=== PATIENT | male | born 1980 | race Caucasian/White ===

== ENCOUNTER 2016-05-26 05:57 | Emergency (ER) | payer BC ==
[~2016-05-26] VITALS: Ht 172.7 cm; Wt 94.0 kg
[~2016-05-26 05:57] MED LIST: ALBU8.5H3 INH; ATEN50TA PO; AZIT250T94 PO; IBUP-1542 PO; PRED50TA PO
[2016-05-26 06:11] VITALS: Ht 172.7 cm; Wt 94.0 kg
[2016-05-26] MEDS ORDERED: DEXAMETHASONE 10 MG/ML 1 ML INJ IM STA (06:57)
[2016-05-26] MEDS ORDERED: ALBUTEROL 0.5% (NEB) 2.5 MG/0.5 ML AMP NEB STA (06:57)
[2016-05-26] MEDS ORDERED: IPRATROPIUM (NEB) 0.5 MG/2.5 ML AMP NEB STA (06:57)
--- NOTE | 2016-05-26 07:25 | RADRPT ---
PROCEDURE: XR Chest. CLINICAL INDICATION: Shortness of breath TECHNIQUE: 2 views of the chest COMPARISON: Chest radiograph July 30, 2015 FINDINGS: The lungs are clear. The heart size is normal. There is no pleural effusion. There is no pneumothorax. There is no acute osseous abnormality. IMPRESSION: 1. No acute cardiopulmonary findings. RPTAT: UU .Jeancarlos Deluca MD, MD Date Time Electronically viewed and signed by .Jeancarlos Deluca MD, on 05/26/2016 07:24 .K/
--- NOTE | 2016-05-26 07:38 | RADRPT ---
PROCEDURE: Soft tissue neck. CLINICAL INDICATION: Swelling, asthma. TECHNIQUE: Single lateral view of the soft tissue neck was obtained. COMPARISON: None. FINDINGS: The airways are patent. The epiglottis is not enlarged. Prevertebral soft tissues are within césar l limits. There is no radiopaque foreign body or abnormal calcification identified. Osseous struct ures are unremarkable. IMPRESSION: Unremarkable soft tissue neck. .Brown Miranda MD, MD Date Time Electronically viewed and signed by .Brown Miranda MD, on 05/26/2016 07:38 .T/
[2016-05-26] MEDS ORDERED: ALBU2.5V3 NEB (08:08)
[2016-05-26] MEDS ORDERED: ALBU18HF INHALATION (08:08)
[2016-05-26] MEDS ORDERED: PRED20TA PO (08:08)
--- NOTE | 2016-05-26 08:16 | ERD ---
ER Documentation Chief Complaint Date/Time DATE: 05/26/16 TIME: 08:12 Chief Complaint cough x 2 weeks HPI Hypertension presents the ED complaining of a dry cough that started 2 weeks ago. States that it was triggered by dust while he was moving to a different home. States that he has been taking Benadryl without relief of his symptoms. States that the breathing got worse today. Denies any chest pain, abdominal pain, nausea, vomiting, neck pain, dyspnea on exertion, orthopnea. ROS All systems reviewed and are negative except as per history of present illness. Medications Home Meds Active Scripts Albuterol Sulfate* (Albuterol Sulfate* Neb) 0.083%-3 Ml Neb, 2.5 MG NEB Q4 Y for SHORTNESS OF BREATH, #30 EA Prov:MILKA FARNSWORTH PA-C 05/26/16 Albuterol Sulfate* (Ventolin HFA*) 18 Gm Hfa.aer.ad, 2 PUFF INHALATION Q4H, #1 INHALER Prov:MILKA FARNSWORTH PA-C 05/26/16 Prednisone* (Prednisone*) 20 Mg Tab, 40 MG PO DAILY for 4 Days, TAB Prov:MILKA FARNSWORTH PA-C 05/26/16 Azithromycin* (Zithromax*) 250 Mg Tablet, 250 MG PO DAILY for 5 Days, TAB zpak #1 as directed Prov:AURORA PALACIOS PA-C 07/30/15 Prednisone* (Prednisone*) 50 Mg Tablet, 50 MG PO DAILY, #5 TAB Prov:AURORA PALACIOS PA-C 07/30/15 Albuterol Sulfate* (Proair HFA*) 8.5 Gm Hfa.aer.ad, 2 PUFF INH Q4, #1 INHALER Prov:AURORA PALACIOS PA-C 07/30/15 Ibuprofen* (Motrin*) 600 Mg Tab, 600 MG PO Q6H Y for PAIN AND OR ELEVATED TEMP, #20 Prov:NICOL SANTIAGO 02/04/15 Reported Medications Atenolol* (Atenolol*) 50 Mg Tablet, 50 MG PO DAILY 01/09/13 Allergies Allergies: Coded Allergies: No Known Allergy (Unverified , 01/09/13) PMhx/Soc History of Surgery: No Anesthesia Reaction: No Hx Neurological Disorder: No Hx Respiratory Disorders: No Hx Cardiac Disorders: Yes (HTN) Hx Psychiatric Problems: No Hx Miscellaneous Medical Probl: No Hx Alcohol Use: No Hx Substance Use: No Hx Tobacco Use: No Physical Exam Vitals Vital Signs Date Time Temp Pulse Resp B/P Pulse Ox O2 Delivery O2 Flow Rate FiO2 05/26/16 07:15 78 19 96 21 05/26/16 06:11 98.3 81 20 137/83 96 Physical Exam Const: Hoh-[id number]-[id number], well-nourished. In no acute distress. Head: Atraumatic, normocephalic Eyes: Normal Conjunctiva without injection. No purulent discharge. PERRL. EOMI ENT: Normal external ear. Ear canal without erythema. Tympanic membrane pearly martinez without effusion or bulging. Nasal canal clear with normal turbinates. Moist oropharynx without tonsillar exudates. Non-erythematous pharynx. Uvula midline. No drooling. No trismus. Neck: Full range of motion. No meningismus. No cervical lymphadenopathy. Resp: Expiratory wheezing bilaterally noted. No rhonchi, rales, or crackles. No accessory muscle use. No retractions. Cardio: Regular rate and rhythm. No murmurs, rubs or gallops. Abd: Soft, non tender, non distended. Normal bowel sounds. No palpable masses. No rebound tenderness. No guarding. Skin: No petechiae or rashes Back: No midline tenderness. No CVA tenderness. Ext: No cyanosis, or edema. Neur: Awake and alert. Psych: Normal Mood and Affect Results 24 hrs Current Medications Medications (Trade) Dose Ordered Sig/Debbie Route PRN Reason Start Time Stop Time Status Last Admin Dose Admin Albuterol (Proventil 0.5% (Neb)) 10 mg ONCE STAT NEB 05/26/16 06:57 05/26/16 07:01 DC 05/26/16 07:12 Ipratropium Dexter (Atrovent 0.02% (Neb)) 1 mg ONCE STAT NEB 05/26/16 06:57 05/26/16 07:01 DC 05/26/16 07:12 Dexamethasone (Decadron) 10 mg ONCE STAT IM 05/26/16 06:57 05/26/16 07:01 DC 05/26/16 07:11 Procedures/MDM This is a 35-year-old male with a past medical history of hypertension presents the ED complaining of cough for the last 2 weeks as well as wheezing earlier today. Patient is afebrile and nontoxic-appearing. Patient has normal vital signs. Patient was noted to have some wheezing in the chest as well as stridor like symptoms in the neck region. A chest x-ray, neck x-ray was ordered to further evaluate patient. A breathing treatment consisting of 10 mg albuterol, 1 mg Atrovent, Decadron was ordered to further treat patient with improvement. PROCEDURE: XR Chest. CLINICAL INDICATION: Shortness of breath TECHNIQUE: 2 views of the chest COMPARISON: Chest radiograph July 30, 2015 FINDINGS: The lungs are clear. The heart size is normal. There is no pleural effusion. There is no pneumothorax. There is no acute osseous abnormality. IMPRESSION: 1. No acute cardiopulmonary findings. PROCEDURE: Soft tissue neck. CLINICAL INDICATION: Swelling, asthma. TECHNIQUE: Single lateral view of the soft tissue neck was obtained. COMPARISON: None. FINDINGS: The airways are patent. The epiglottis is not enlarged. Prevertebral soft tissues are within normal limits. There is no radiopaque foreign body or abnormal calcification identified. Osseous structures are unremarkable. IMPRESSION: Unremarkable soft tissue neck. This patient presents to the ED with symptoms consistent with bronchitis with wheezing exacerbated by dust. Patient is afebrile and has normal vital signs. Patient's physical exam include lungs which were clear to auscultation and a normal pulse oximetry. There is a low suspicion for pneumonia, pneumothorax, pulmonary embolism, epiglottitis, otitis media, otitis externa, viral/strep pharyngitis, sinusitis, peritonsillar abscess, mastoiditis, retropharyngeal abscess, meningitis, sepsis, acute abdomen or other emergent conditions. Discharge medications: Albuterol, Ventolin, Prednisone Patient was instructed to return to the ED for any new or worsening symptoms. They should otherwise follow up with the primary care provider within 1-2 days. The patient's questions were answered at the time of discharge. Patient understood and agreed with discharge management. Departure Diagnosis: Primary Impression: Wheezing without diagnosis of asthma Condition: Stable Patient Instructions: Bronchitis With Wheezing (Adult) Referrals: COMM[facility]ITY CLINICS YOU HAVE RECEIVED A MEDICAL SCREENING EXAM AND THE RESULTS INDICATE THAT YOU DO NOT HAVE A CONDITION THAT REQUIRES URGENT TREATMENT IN THE EMERGENCY DEPARTMENT. FURTHER EVALUATION AND TREATMENT OF YOUR CONDITION CAN WAIT UNTIL YOU ARE SEEN IN YOUR DOCTORS OFFICE WITHIN THE NEXT 1-2 DAYS. IT IS YOUR RESPONSIBILITY TO MAKE AN APPOINTMENT FOR FOLOW-UP CARE. IF YOU HAVE A PRIMARY DOCTOR --you should call your primary doctor and schedule an appointment IF YOU DO NOT HAVE A PRIMARY DOCTOR YOU CAN CALL OUR PHYSICIAN REFERRAL HOTLINE AT IF YOU CAN NOT AFFORD TO SEE A PHYSICIAN YOU CAN CHOSE FROM THE FOLLOWING [facility] [address] [facility] [address] [facility] [address] [facility] [address] [facility] [address] [facility]. [facility] [address] [facility]. [facility] YOU HAVE RECEIVED A MEDICAL SCREENING EXAM AND THE RESULTS INDICATE THAT YOU DO NOT HAVE A CONDITION THAT REQUIRES URGENT TREATMENT IN THE EMERGENCY DEPARTMENT. FURTHER EVALUATION AND TREATMENT OF YOUR CONDITION CAN WAIT UNTIL YOU ARE SEEN IN YOUR DOCTORS OFFICE WITHIN THE NEXT 1-2 DAYS. IT IS YOUR RESPONSIBILITY TO MAKE AN APPOINTMENT FOR FOLOW-UP CARE. IF YOU HAVE A PRIMARY DOCTOR --you should call your primary doctor and schedule and appointment IF YOU DO NOT HAVE A PRIMARY DOCTOR YOU CAN CALL OUR PHYSICIAN REFERRAL HOTLINE AT . IF YOU CAN NOT AFFORD TO SEE A PHYSICIAN YOU CAN CHOSE FROM THE FOLLOWING [facility] INSTITUTIONS: [facility] [address] [place] [address] [facility] [address] [place] [address] [facility] [address] [place] [address] [facility] URGENT CARE/SPECIALTIES Additional Instructions: FOLLOW UP WITH YOUR PRIMARY CARE PHYSICIAN TOMORROW.Return to this facility if you are not improving as expected. MILKA FARNSWORTH PA-C May 26, 2016 08:16
== END 2016-05-26 08:15 | disposition home or self-care (01) ==
LOC: FTE 05:57
DX: R06.2 Wheezing (principal); I10 Essential (primary) hypertension
CPT/HCPCS: 70360; 71010; 94664; J1100; 96372

== ENCOUNTER 2017-07-05 18:18 | Emergency (ER) | END 2017-07-05 21:54 | disposition home or self-care (01) ==

== ENCOUNTER 2017-08-08 03:31 | Emergency (ER) | END 2017-08-08 05:05 | disposition home or self-care (01) ==

== ENCOUNTER 2017-11-15 19:57 | Emergency (ER) | END 2017-11-15 22:38 | disposition home or self-care (01) ==

== ENCOUNTER 2018-08-09 07:34 | Emergency (ER) | payer BC ==
[~2018-08-09] VITALS: Ht 170.2 cm; Wt 93.1 kg
[~2018-08-09 07:34] MED LIST changes: +ACET500C5 PO; +ALBU18HF INHALATION; +ALBU2.5V3 NEB; -ALBU8.5H3 INH; +ALBU8.5H8 INH; +AZIT250T PO; -AZIT250T94 PO; +BENZ-6 PO; +CETI10CA PO; +HYDR-4011 PO; +MECL12.574 PO; +NAPR-688 PO; +ONDA4TAB14 PO; +POLY10DR19 LEFT EYE; +PRED20TA PO
[2018-08-09 07:37] VITALS: Ht 170.2 cm; Wt 93.1 kg
[2018-08-09] MEDS ORDERED: IPRATROPIUM (NEB) 0.5 MG/2.5 ML AMP NEB STA (07:52)
[2018-08-09] MEDS ORDERED: predniSONE 20 MG TAB PO STA (07:52)
[2018-08-09] MEDS ORDERED: ALBUTEROL 0.083% (NEB) 2.5 MG/3 ML AMP NEB STA (07:52)
--- NOTE | 2018-08-09 08:06 | ERD ---
ER Documentation Chief Complaint Chief Complaint pt has cough and wheezing x 1 month HPI Patient is a 37-year-old male with past medical history of hypertension, asthma, presents the ER for concerns of a cough and wheezing for the last month. Patient states he typically has wheezing after exercising however over the last month he said numerous episodes. Patient states he does use an albuterol inhaler. Patient is concerned he may have bronchitis. Patient reports a productive cough. Patient has no fevers or chills. Patient has no chest pain or shortness of breath. Patient has no nausea or vomiting. No recent travel. No sick contacts. ROS All systems reviewed and are negative except as per history of present illness. Medications Home Meds Active Scripts Meclizine Hcl* (Antivert*) 12.5 Mg Tab, 25 MG PO Q6H PRN for DIZZINESS, #20 TAB Prov:JOSUÉ MARTINEZ NP 06/04/18 Acetaminophen* (Tylophen*) 500 Mg Capsule, 1 CAP PO Q6H PRN for PAIN AND OR ELEVATED TEMP, #20 CAP Prov:JOSUÉ MARTINEZ NP 08/08/17 Benzonatate* (Tessalon Perle*) 100 Mg Capsule, 100 MG PO Q8H PRN for COUGH, #20 CAP Prov:JOSUÉ MARTINEZ NP 08/08/17 Cetirizine Hcl* (Zyrtec*) 10 Mg Capsule, 10 MG PO DAILY, #30 TAB.CHEW Prov:JOSUÉ MARTINEZ NP 08/08/17 Polymyxin B Sulfate-TMP* (Polymyxin B-TMP Eye Drops*) 10 Ml Drops, 1 DROP LEFT EYE QID for 7 Days, EA Prov:JOSUÉ MARTINEZ NP 08/08/17 Azithromycin* (Zithromax*) 250 Mg Tablet, 250 MG PO .JavonPAROB DIRECTED, #6 TAB TAKE 500 MG (2 TABS) THE FIRST DAY THEN 250 MG (1 TAB) DAYS 2-5 Prov:JOSUÉ MARTINEZ NP 08/08/17 Hydrocodone/Acetaminophen ([place] 5-325 Tablet) 1 Each Tablet, 1 EACH PO Q6 for SEVERE PAIN LEVEL 7-10, #10 TAB Prov:CARROL KAN DO 3/16/18 Naproxen* (Naproxen*) 500 Mg Tablet, 500 MG PO BID PRN for PAIN, #20 TAB Prov:CARROL KAN DO 07/05/17 Ondansetron (Ondansetron Odt) 4 Mg Tab.rapdis, 4 MG PO Q6H PRN for NAUSEA AND/OR VOMITING, #10 TAB Prov:CARROL KAN DO 07/05/17 Albuterol Sulfate* (Albuterol Sulfate* Neb) 0.083%-3 Ml Neb, 2.5 MG NEB Q4 PRN for SHORTNESS OF BREATH, #30 EA Prov:MILKA FARNSWORTH PA-C 05/26/16 Albuterol Sulfate* (Ventolin HFA*) 18 Gm Hfa.aer.ad, 2 PUFF INHALATION Q4H, #1 INHALER Prov:MILKA FARNSWORTH PA-C 05/26/16 Prednisone* (Prednisone*) 20 Mg Tab, 40 MG PO DAILY for 4 Days, TAB Prov:IMLKA FARNSWORTH PA-C 05/26/16 Azithromycin* (Zithromax*) 250 Mg Tablet, 250 MG PO DAILY for 5 Days, TAB zpak #1 as directed Prov:AURORA PALACIOS PA-C 07/30/15 Prednisone* (Prednisone*) 50 Mg Tablet, 50 MG PO DAILY, #5 TAB Prov:AURORA PALACIOS PA-C 07/30/15 Albuterol Sulfate* (Proair HFA*) 8.5 Gm Hfa.aer.ad, 2 PUFF INH Q4, #1 INHALER Prov:AURORA PALACIOS PA-C 07/30/15 Ibuprofen* (Motrin*) 600 Mg Tab, 600 MG PO Q6H PRN for PAIN AND OR ELEVATED TEMP, #20 Prov:NICOL SANTIAGO 02/04/15 Reported Medications Atenolol* (Atenolol*) 50 Mg Tablet, 50 MG PO DAILY 01/09/13 Allergies Allergies: Coded Allergies: No Known Allergy (Unverified , 06/04/18) PMhx/Soc History of Surgery: Yes (LT SHOULDER ) Anesthesia Reaction: No Hx Neurological Disorder: No Hx Respiratory Disorders: No Hx Cardiac Disorders: Yes (HTN) Hx Psychiatric Problems: No Hx Miscellaneous Medical Probl: Yes (htn, hld, low vitd) Hx Alcohol Use: No Hx Substance Use: No Hx Tobacco Use: No FmHx Family History: No diabetes Physical Exam Vitals Vital Signs Date Temp Pulse Resp B/P (MAP) Pulse Ox O2 O2 Flow FiO2 Time Delivery Rate 08/09/18 66 18 98 21 08:22 08/09/18 98.1 60 18 195/85 97 07:37 (121) Physical Exam GENERAL: Well-developed, well-nourished male. Appears in no acute distress. Speaking in full sentences HEAD: Normocephalic, atraumatic. EYES: Pupils are equally reactive bilaterally. EOMs grossly intact. No conjunctival erythema. ENT: Moist mucous membranes. No uvula deviation. No kissing tonsils. NECK: Supple. No meningismus. Normal range of motion of the neck. LUNG: Bilateral expiratory wheezing noted. No abdominal retractions, no nasal flaring, no tripoding. HEART: Regular rate and rhythm. No murmurs, rubs or gallops. EXTREMITIES: Equal pulses bilaterally. No peripheral clubbing, cyanosis or edema. No unilateral leg swelling. NEUROLOGIC: Alert and oriented. Moving all four extremities without any difficulty. Normal speech. Steady gait. SKIN: Normal color. Warm and dry. No rashes or lesions. Results 24 hrs Current Medications Medications Dose Sig/Debbie Start Time Status Last (Trade) Ordered Route PRN Stop Time Admin Dose Reason Admin Albuterol 5 mg ONCE STAT 08/09/18 DC 08/09/18 (Proventil NEB 07:52 08:19 0.083% (Neb)) 08/09/18 07:53 Ipratropium 1 mg ONCE STAT 08/09/18 DC 08/09/18 [place] NEB 07:52 08:20 (Atrovent 08/09/18 07:53 0.02% (Neb)) Prednisone 60 mg ONCE STAT 08/09/18 DC 08/09/18 (Prednisone) PO 07:52 08:00 08/09/18 07:53 Procedures/MDM ED COURSE: The patient was stable throughout ED course. I kept the patient and/or family informed of laboratory and diagnostic imaging results throughout the ED course. DIAGNOSTIC IMAGING: Read by radiologist. Patient: SIA SKY : 1980 Age: 37 Sex: M MR #: [id number] DOS: 08/09/18 0752 Ordering MD: MIGUEL ANGULO PA-C Location: [facility] Room/Bed: PROCEDURE: XR Chest. CLINICAL INDICATION: Cough TECHNIQUE: Single frontal view of the chest was obtained COMPARISON: CR CHEST 05/26/2016 FINDINGS: Limited study. The right costophrenic angle was not completely included. The heart and mediastinum are within normal limits. The lungs are clear. There is no pleural effusion or pneumothorax. RPTAT: AA IMPRESSION: No acute disease. .Eligio Larkin MD, MD Date Time Electronically viewed and signed by .Eligio Larkin MD, on 08/09/2018 08:19 .S/ CC: MIGUEL ANGULO PA-C [phone] MEDICAL DECISION MAKING: This is a 37-year-old male with history of hypertension and asthma presents the ER for concerns of productive cough and wheezing for the last month. Patient was afebrile. Patient was not hypoxic. Patient denied recent travel. Cardiac exam was normal. Lung exam did reveal bilateral expiratory wheezing. Patient had no signs of acute respiratory distress. Patient was given a breathing treatment of albuterol and ipratropium. Patient also given prednisone. On reexamination, patient had improvement in symptoms. Chest x-ray is unremarkable. Patient will be discharged home with prescription for prednisone, albuterol, Tessalon Perles, azithromycin for concerns of bronchitis. Low suspicion for for acute coronary syndrome, pneumothorax, pneumonia, TB, CHF, asthma exacerbation, respiratory distress, respiratory compromise, pertussis, GERD, allergic rhinitis. Of note, patient blood pressure was elevated. Patient did not take his medications morning. Patient advised take medication upon returning home. Patient had no signs of acute end organ failure. DISCHARGE: At this time, patient is stable for discharge and outpatient management. I have instructed the patient to follow-up with his/her primary care physician in 1-2 days. If symptoms persist, patient may need to see a specialist for further examinations and testing. I have instructed the patient to promptly return to the ER at any time for any new or worsening symptoms including increased increased pain, fever, nausea, vomiting, numbness, shortness of breath, weakness, ongoing wheezing, retractions or LOC. The patient and/or family expressed understanding of and agreement with this plan. All questions were answered. Home care instructions were provided. Patient's blood pressure was elevated (>120/80) but appears stable without evidence of hypertensive emergency, hypertensive urgency or end-organ failure. I had discussion with the patient about the risks of hypertension. I have advised the patient to follow up with his/her primary care physician for outpatient monitoring and treatment for hypertension in 2-3 days. I have instructed the patient to return to the ER for any new or worsening symptoms including chest pain, shortness of breath, headache, blurred vision, confusion, nausea, vomiting or LOC. Disclaimer: Inadvertent spelling and grammatical errors are likely due to EHR/dictation software use and do not reflect on the overall quality of patient care. Also, please note that the electronic time recorded on this note does not necessarily reflect the actual time of the patient encounter. Departure Diagnosis: Primary Impression: Wheezy bronchitis Condition: Fair Patient Instructions: Bronchitis With Wheezing (Adult) Referrals: [facility] YOU HAVE RECEIVED A MEDICAL SCREENING EXAM AND THE RESULTS INDICATE THAT YOU DO NOT HAVE A CONDITION THAT REQUIRES URGENT TREATMENT IN THE EMERGENCY DEPARTMENT. FURTHER EVALUATION AND TREATMENT OF YOUR CONDITION CAN WAIT UNTIL YOU ARE SEEN IN YOUR DOCTORS OFFICE WITHIN THE NEXT 1-2 DAYS. IT IS YOUR RESPONSIBILITY TO MAKE AN APPOINTMENT FOR FOLOW-UP CARE. IF YOU HAVE A PRIMARY DOCTOR --you should call your primary doctor and schedule an appointment IF YOU DO NOT HAVE A PRIMARY DOCTOR YOU CAN CALL OUR PHYSICIAN REFERRAL HOTLINE AT IF YOU CAN NOT AFFORD TO SEE A PHYSICIAN YOU CAN CHOSE FROM THE FOLLOWING [facility] [address] [facility] [address] [facility] [address] [facility] [address] [facility] [facility] [address] [facility]. [facility]. [address] [facility]. [facility] YOU HAVE RECEIVED A MEDICAL SCREENING EXAM AND THE RESULTS INDICATE THAT YOU DO NOT HAVE A CONDITION THAT REQUIRES URGENT TREATMENT IN THE EMERGENCY DEPARTMENT. FURTHER EVALUATION AND TREATMENT OF YOUR CONDITION CAN WAIT UNTIL YOU ARE SEEN IN YOUR DOCTORS OFFICE WITHIN THE NEXT 1-2 DAYS. IT IS YOUR RESPONSIBILITY TO MAKE AN APPOINTMENT FOR FOLOW-UP CARE. IF YOU HAVE A PRIMARY DOCTOR --you should call your primary doctor and schedule and appointment IF YOU DO NOT HAVE A PRIMARY DOCTOR YOU CAN CALL OUR PHYSICIAN REFERRAL HOTLINE AT . IF YOU CAN NOT AFFORD TO SEE A PHYSICIAN YOU CAN CHOSE FROM THE FOLLOWING [facility]: [facility] [address] [place] [address] [facility] [address] [place], [place] [id number] [place] [address] [address] [place] [address] Additional Instructions: Call your primary care doctor TOMORROW for an appointment during the next 1-2 d ays.See the doctor sooner or return here if your condition worsens before your appointment time. MIGUEL ANGULO PA-C Aug 09, 2018 08:06
[2018-08-09] MEDS ORDERED: ALBU8.5H8 INH (08:46)
[2018-08-09] MEDS ORDERED: PRED20TA PO (08:46)
[2018-08-09] MEDS ORDERED: AZIT250T PO (08:46)
[2018-08-09] MEDS ORDERED: BENZ-6 PO (08:47)
[2018-08-09 09:02] VITALS: BP 154/86; PULSE 53; RESP 20
== END 2018-08-09 09:03 | disposition home or self-care (01) ==
LOC: FTE 07:34
DX: J20.9 Acute bronchitis, unspecified (principal); I10 Essential (primary) hypertension; J45.901 Unspecified asthma with (acute) exacerbation
CPT/HCPCS: 71045; 94664; 99284; J7512

== ENCOUNTER 2018-08-13 14:57 | Emergency (ER) | payer BC ==
[~2018-08-13] VITALS: Ht 172.7 cm; Wt 94.4 kg
[2018-08-13 15:00] VITALS: BP 160/73; PULSE 81; RESP 20; Ht 172.7 cm; Wt 94.4 kg
--- NOTE | 2018-08-13 15:13 | ERD ---
ER Documentation Chief Complaint Chief Complaint abscess on lower back that was popped by ; now its swollen HPI 37-year-old male, with history of hypertension, presents to the emergency department, complaining of a painful area of erythema and induration on the left lower back. According to the patient, he had an a small lesion that was popped by his and after that it became worse. The patient denies fever, no chills, no chest pain, no headache. ROS All systems reviewed and are negative except as per history of present illness. Medications Home Meds Active Scripts Hydroxyzine Hcl* (Hydroxyzine Hcl*) 25 Mg Tablet, 25 MG PO TID PRN for ANXIETY, #30 TAB Prov:JING MAGANA MD 08/13/18 Acetaminophen* (Tylenol*) 325 Mg Tablet, 2 TAB PO Q6 PRN for PAIN AND OR ELEVATED TEMP, #20 TAB Prov:JING MAGANA MD 08/13/18 Cephalexin* (Keflex*) 500 Mg Capsule, 500 MG PO BID for 7 Days, CAP Prov:JING MAGANA MD 08/13/18 Sulfamethoxazole/Trimethoprim* (Bactrim Ds* Tablet) 1 Each Tablet, 1 TAB PO BID, #14 TAB Prov:JING MAGANA MD 08/13/18 Mupirocin* (Bactroban*) 2% -22 Gram Oint...g., 1 APPLIC TOP BID for 7 Days, EA Prov:JING MAGANA MD 08/13/18 Benzonatate* (Tessalon Perle*) 100 Mg Capsule, 100 MG PO Q8H PRN for COUGH, #20 CAP Prov:MIGUEL ANGULO PA-C 08/09/18 Azithromycin* (Zithromax*) 250 Mg Tablet, 250 MG PO .ZPACK DIRECTED, #6 TAB TAKE 500 MG (2 TABS) THE FIRST DAY THEN 250 MG (1 TAB) DAYS 2-5 Prov:MIGUEL ANGULO PA-C 08/09/18 Prednisone* (Prednisone*) 20 Mg Tab, 60 MG PO DAILY for 4 Days, TAB Prov:MIGUEL ANGULO PA-C 08/09/18 Albuterol Sulfate* (Proair HFA*) 8.5 Gm Hfa.aer.ad, 2 PUFF INH Q6, #1 INHALER Prov:MIGUEL ANGULO PA-C 08/09/18 Meclizine Hcl* (Antivert*) 12.5 Mg Tab, 25 MG PO Q6H PRN for DIZZINESS, #20 TAB Prov:JOSUÉ MARTINEZ SMOKE EATER 06/04/18 Acetaminophen* (Tylophen*) 500 Mg Capsule, 1 CAP PO Q6H PRN for PAIN AND OR ELEVATED TEMP, #20 CAP Prov:JOSUÉ MARTINEZ SMOKE EATER 08/08/17 Benzonatate* (Tessalon Perle*) 100 Mg Capsule, 100 MG PO Q8H PRN for COUGH, #20 CAP Prov:JOSUÉ MARTINEZ NP 08/08/17 Cetirizine Hcl* (Zyrtec*) 10 Mg Capsule, 10 MG PO DAILY, #30 TAB.CHEW Prov:JOSUÉ MARTINEZ NP 08/08/17 Polymyxin B Sulfate-TMP* (Polymyxin B-TMP Eye Drops*) 10 Ml Drops, 1 DROP LEFT EYE QID for 7 Days, EA Prov:JOSUÉ MARTINEZ NP 08/08/17 Azithromycin* (Zithromax*) 250 Mg Tablet, 250 MG PO .DANA DIRECTED, #6 TAB TAKE 500 MG (2 TABS) THE FIRST DAY THEN 250 MG (1 TAB) DAYS 2-5 Prov:JOSUÉ MARTINEZ NP 08/08/17 Hydrocodone/Acetaminophen ([place] 5-325 Tablet) 1 Each Tablet, 1 EACH PO Q6 for SEVERE PAIN LEVEL 7-10, #10 TAB Prov:CARROL KAN DO 07/05/17 Naproxen* (Naproxen*) 500 Mg Tablet, 500 MG PO BID PRN for PAIN, #20 TAB Prov:CARROL KAN DO 07/05/17 Ondansetron (Ondansetron Odt) 4 Mg Tab.rapdis, 4 MG PO Q6H PRN for NAUSEA AND/OR VOMITING, #10 TAB Prov:CARROL KAN DO 07/05/17 Albuterol Sulfate* (Albuterol Sulfate* Neb) 0.083%-3 Ml Neb, 2.5 MG NEB Q4 PRN for SHORTNESS OF BREATH, #30 EA Prov:DAJAMILKA Coy PA-C 05/26/16 Albuterol Sulfate* (Ventolin HFA*) 18 Gm Hfa.aer.ad, 2 PUFF INHALATION Q4H, #1 INHALER Prov:DAJAMILKA Coy PA-C 05/26/16 Prednisone* (Prednisone*) 20 Mg Tab, 40 MG PO DAILY for 4 Days, TAB Prov:MILKA FARNSWORTH PA-C 05/26/16 Azithromycin* (Zithromax*) 250 Mg Tablet, 250 MG PO DAILY for 5 Days, TAB zpak #1 as directed Prov:AURORA PALACIOS PA-C 07/30/15 Prednisone* (Prednisone*) 50 Mg Tablet, 50 MG PO DAILY, #5 TAB Prov:AURORA PALACIOS PA-C 07/30/15 Albuterol Sulfate* (Proair HFA*) 8.5 Gm Hfa.aer.ad, 2 PUFF INH Q4, #1 INHALER Prov:AURORA PALACIOS PA-C 07/30/15 Ibuprofen* (Motrin*) 600 Mg Tab, 600 MG PO Q6H PRN for PAIN AND OR ELEVATED TEMP, #20 Prov:NICOL SANTIAGO 02/04/15 Reported Medications Atenolol* (Atenolol*) 50 Mg Tablet, 50 MG PO DAILY 01/09/13 Allergies Allergies: Coded Allergies: No Known Allergy (Unverified , 06/04/18) PMhx/Soc History of Surgery: Yes (LT SHOULDER ) Anesthesia Reaction: No Hx Neurological Disorder: No Hx Respiratory Disorders: No Hx Cardiac Disorders: Yes (HTN) Hx Psychiatric Problems: No Hx Miscellaneous Medical Probl: Yes (htn, hld, low vitd) Hx Alcohol Use: No Hx Substance Use: No Hx Tobacco Use: No FmHx Family History: diabetes, other (Hypertension) Physical Exam Vitals Vital Signs Date Temp Pulse Resp B/P (MAP) Pulse Ox O2 O2 Flow FiO2 Time Delivery Rate 08/13/18 97.5 81 20 160/73 97 15:00 (102) Physical Exam Const: No acute distress Head: Atraumatic Eyes: Normal Conjunctiva ENT: Normal External Ears, Nose and Mouth. Neck: Full range of motion. No meningismus. Resp: Clear to auscultation bilaterally Cardio: Regular rate and rhythm, no murmurs Abd: Soft, non tender, non distended. Normal bowel sounds Skin: 3 x 3 cm well demarcated area of erythema and induration, with a central opening with active mild drainage of purulent material. Otherwise no evidence of abscess formation. Back: No midline or flank tenderness Ext: No cyanosis, or edema Neur: Awake and alert Psych: Normal Mood and Affect Procedures/MDM Vital signs stable, differential diagnosis include but not limited to: DVT, superficial thrombosis, cellulitis, erysipelas, shingles, abscess. Low suspicion for acute systemic infectious process. Physical examination and clinical presentation consistent most likely with cellulitis of the skin of the left lower back without evidence of abscess formation. During the ED course the patient remained stable, no new complaints. Results and clinical impression discussed with the patient who agrees with management. The patient is stable to be treated outpatient and will be discharged home with a Rx for antibiotics, anti-inflammatories and pain medications, some side effects of prescribed medications (headache, rash, nausea, vomiting, diarrhea, drowsiness, habituation, bleeding, hypertension, interactions with other medications) were reviewed. The patient was instructed to follow up with the primary care provider in the next 48h. If symptoms persist, worsen or new symptoms develop, then patient should return to the ED immediately. Instructions explained and given directly by me to the patient and relatives with acknowledgment and demonstrated understanding. Disclaimer: Inadvertent spelling and grammatical errors are likely due to EHR/dictation software use and do not reflect on the overall quality of patient care. Also, please note that the electronic time recorded on this note does not necessarily reflect the actual time of the patient encounter. Departure Diagnosis: Primary Impression: Cellulitis of skin of back Condition: Stable Additional Instructions: Thank you very much for allowing us to participate in your care. Your health and safety is our top priority at [facility]. The evaluation in the emergency department has been done to rule out an acute emergency, therefore, chronic conditions like malignancy or other diseases have not been evaluated; therefore, you need to follow up with a primary care provider in the next 48h. If symptoms persist, worsen or new symptoms develop, then patient should return to the ED immediately. Call your primary care doctor TOMORROW for an appointment during the next 2-4 days and bring all the information provided. Have prescriptions filled and follow precisely the directions on the label. If the symptoms get worse and your provider is unavailable, return to the Emergency Department immediately. JING MAGANA MD Aug 13, 2018 15:13
[2018-08-13] MEDS ORDERED: MUPI22OI2 TOP (15:15)
[2018-08-13] MEDS ORDERED: CEPH-443 PO (15:15)
[2018-08-13] MEDS ORDERED: ACET325T33 PO (15:15)
[2018-08-13] MEDS ORDERED: HYDR-843 PO (15:15)
[2018-08-13] MEDS ORDERED: SULF1TAB31 PO (15:15)
== END 2018-08-13 15:16 | disposition home or self-care (01) ==
LOC: FTE 14:57 → E/R 15:16
DX: L03.312 Cellulitis of back [any part except buttock and flank] (principal); I10 Essential (primary) hypertension
CPT/HCPCS: 99283

== ENCOUNTER 2018-08-18 06:14 | Emergency (ER) | payer BC ==
[~2018-08-18] VITALS: Ht 177.8 cm; Wt 93.1 kg
[~2018-08-18 06:14] MED LIST changes: +ACET325T33 PO; +CEPH-443 PO; +HYDR-843 PO; +MUPI22OI2 TOP; +SULF1TAB31 PO
[2018-08-18 06:18] VITALS: Ht 177.8 cm; Wt 93.1 kg
[2018-08-18] MEDS ORDERED: KETOROLAC 30 MG INJ IV STA (06:46)
[2018-08-18] MEDS ORDERED: ONDANSETRON 4 MG INJ IV STA (06:46)
[2018-08-18] MEDS ORDERED: SOD CHLORIDE 0.9% 1,000 ML IV ONE (07:00)
[2018-08-18] MEDS ORDERED: FAMOTIDINE 20 MG INJ IV ONE (07:30)
[2018-08-18] MEDS ORDERED: ACET325T33 PO (07:47)
[2018-08-18] MEDS ORDERED: ONDA4TAB14 PO (07:47)
[2018-08-18] MEDS ORDERED: FAMO-96 PO (07:47)
--- NOTE | 2018-08-18 08:31 | ERD ---
ER Documentation Chief Complaint Chief Complaint WOUND CHECK AND DIARRHEA X4DAYS; ON ATBS HPI History of Present Illness: 37-year-old male with past medical history and to include hypertension and hypertriglycerides coming in today with complaint of wound recheck. Patient reports having an abscess and is currently on Bactrim and Keflex for the infection with 2 days left of antibiotics. Patient reports initial drainage to abscess, but no longer draining. Patient denies pain at site of abscess. Patient reports he has been having approximately 3 episodes DAILY for the past 3-4 days of diarrhea as well as queasy stomach and decreased appetite. Associated symptoms includes feeling of having a fever with unknown T-max, headache, decreased appetite. Patient's has also developed diarrhea yesterday. The patient is concerned that he may have given her the diarrhea or is concerned that it could be from the antibiotics. At home pharmacological/nonpharmacological treatment for symptoms: Acetaminophen at 5 AM Denies social concerns; Denies recent foreign travel ROS All systems reviewed and are negative except as per history of present illness. Medications Home Meds Active Scripts Acetaminophen* (Tylenol*) 325 Mg Tablet, 2 TAB PO Q6 PRN for PAIN/HEADACHE, #20 TAB Prov:GALINDO LIGHT NP 08/18/18 Famotidine* (Pepcid*) 20 Mg Tablet, 20 MG PO BID for abdominal pain/acid reflux for 7 Days, #14 TAB Prov:GALINDO LIGHT NP 08/18/18 Ondansetron (Ondansetron Odt) 4 Mg Tab.rapdis, 4 MG PO Q8 PRN for NAUSEA AND/OR VOMITING, #10 TAB Prov:GALINDO LIGHT NP 08/18/18 Hydroxyzine Hcl* (Hydroxyzine Hcl*) 25 Mg Tablet, 25 MG PO TID PRN for ANXIETY, #30 TAB Prov:JING MAGANA MD 08/13/18 Acetaminophen* (Tylenol*) 325 Mg Tablet, 2 TAB PO Q6 PRN for PAIN AND OR ELEVATED TEMP, #20 TAB Prov:JING MAGANA MD 08/13/18 Cephalexin* (Keflex*) 500 Mg Capsule, 500 MG PO BID for 7 Days, CAP Prov:JING MAGANA MD 08/13/18 Sulfamethoxazole/Trimethoprim* (Bactrim Ds* Tablet) 1 Each Tablet, 1 TAB PO BID, #14 TAB Prov:JING MAGANA MD 08/13/18 Mupirocin* (Bactroban*) 2% -22 Gram Oint...g., 1 APPLIC TOP BID for 7 Days, EA Prov:JING MAGANA MD 08/13/18 Benzonatate* (Tessalon Perle*) 100 Mg Capsule, 100 MG PO Q8H PRN for COUGH, #20 CAP Prov:MIGUEL ANGULO PA-C 08/09/18 Azithromycin* (Zithromax*) 250 Mg Tablet, 250 MG PO .ZPACK DIRECTED, #6 TAB TAKE 500 MG (2 TABS) THE FIRST DAY THEN 250 MG (1 TAB) DAYS 2-5 Prov:MIGUEL ANGULO PA-C 08/09/18 Prednisone* (Prednisone*) 20 Mg Tab, 60 MG PO DAILY for 4 Days, TAB Prov:MIGUEL ANGULO PA-C 08/09/18 Albuterol Sulfate* (Proair HFA*) 8.5 Gm Hfa.aer.ad, 2 PUFF INH Q6, #1 INHALER Prov:MIGUEL ANGULO PA-C 08/09/18 Meclizine Hcl* (Antivert*) 12.5 Mg Tab, 25 MG PO Q6H PRN for DIZZINESS, #20 TAB Prov:JOSUÉ MARTINEZ NP 06/04/18 Acetaminophen* (Tylophen*) 500 Mg Capsule, 1 CAP PO Q6H PRN for PAIN AND OR ELEV ATED TEMP, #20 CAP Prov:JOSUÉ MARTINEZ NP 08/08/17 Benzonatate* (Tessalon Perle*) 100 Mg Capsule, 100 MG PO Q8H PRN for COUGH, #20 CAP Prov:JOSUÉ MARTINEZ NP 08/08/17 Cetirizine Hcl* (Zyrtec*) 10 Mg Capsule, 10 MG PO DAILY, #30 TAB.CHEW Prov:JOSUÉ MARTINEZ NP 08/08/17 Polymyxin B Sulfate-TMP* (Polymyxin B-TMP Eye Drops*) 10 Ml Drops, 1 DROP LEFT EYE QID for 7 Days, EA Prov:CUISIA,JOSUÉ Coy CHEMICAL LAB TECHNICIAN 08/08/17 Azithromycin* (Zithromax*) 250 Mg Tablet, 250 MG PO .ZPACK DIRECTED, #6 TAB TAKE 500 MG (2 TABS) THE FIRST DAY THEN 250 MG (1 TAB) DAYS 2-5 Prov:JOSUÉ MARTINEZ TRUE Coy CHEMICAL LAB TECHNICIAN 08/08/17 Hydrocodone/Acetaminophen ([place] 5-325 Tablet) 1 Each Tablet, 1 EACH PO Q6 for SEVERE PAIN LEVEL 7-10, #10 TAB Prov:CARROL KAN DO 07/05/17 Naproxen* (Naproxen*) 500 Mg Tablet, 500 MG PO BID PRN for PAIN, #20 TAB Prov:CARROL KAN DO 07/05/17 Ondansetron (Ondansetron Odt) 4 Mg Tab.rapdis, 4 MG PO Q6H PRN for NAUSEA AND/OR VOMITING, #10 TAB Prov:CARROL KAN DO 07/05/17 Albuterol Sulfate* (Albuterol Sulfate* Neb) 0.083%-3 Ml Neb, 2.5 MG NEB Q4 PRN for SHORTNESS OF BREATH, #30 EA Prov:MILKA FARNSWORTH PA-C 05/26/16 Albuterol Sulfate* (Ventolin HFA*) 18 Gm Hfa.aer.ad, 2 PUFF INHALATION Q4H, #1 INHALER Prov:MILKA FARNSWORTH PA-C 05/26/16 Prednisone* (Prednisone*) 20 Mg Tab, 40 MG PO DAILY for 4 Days, TAB Prov:MILKA FARNSWORTH PA-C 05/26/16 Azithromycin* (Zithromax*) 250 Mg Tablet, 250 MG PO DAILY for 5 Days, TAB zpak #1 as directed Prov:AURORA PALACIOS PA-C 07/30/15 Prednisone* (Prednisone*) 50 Mg Tablet, 50 MG PO DAILY, #5 TAB Prov:AURORA PALACIOS PA-C 07/30/15 Albuterol Sulfate* (Proair HFA*) 8.5 Gm Hfa.aer.ad, 2 PUFF INH Q4, #1 INHALER Prov:AURORA PALACIOS PA-C 07/30/15 Ibuprofen* (Motrin*) 600 Mg Tab, 600 MG PO Q6H PRN for PAIN AND OR ELEVATED TEMP, #20 Prov:NICOL SANTIAGO 02/04/15 Reported Medications Atenolol* (Atenolol*) 50 Mg Tablet, 50 MG PO DAILY 01/09/13 Allergies Allergies: Coded Allergies: No Known Allergy (Unverified , 06/04/18) PMhx/Soc History of Surgery: Yes (LT SHOULDER ) Anesthesia Reaction: No Hx Neurological Disorder: No Hx Respiratory Disorders: No Hx Cardiac Disorders: Yes (HTN) Hx Psychiatric Problems: No Hx Miscellaneous Medical Probl: Yes (htn, hld, low vitd) Hx Alcohol Use: No Hx Substance Use: No Hx Tobacco Use: No Smoking Status: Never smoker FmHx Family History: diabetes, coronary disease Physical Exam Vitals Vital Signs Date Temp Pulse Resp B/P (MAP) Pulse Ox O2 O2 Flow FiO2 Time Delivery Rate 08/18/18 98.4 70 19 132/84 97 06:18 (100) Physical Exam Const: No acute distress Head: Atraumatic Eyes: Normal Conjunctiva ENT: Normal External Ears, Nose and Mouth. Neck: Full range of motion. No meningismus. Resp: Clear to auscultation bilaterally Cardio: Regular rate and rhythm, no murmurs Abd: Soft, non tender, non distended. Normal bowel sounds Skin: No petechiae or rashes, abscess noted to the right buttock with approximately 5 x 5 cm of induration, no fluctuance, no surrounding cellulitis, no warmth, no streaking. Back: No midline or flank tenderness Ext: No cyanosis, or edema Neur: Awake and alert Psych: Normal Mood and Affect Results 24 hrs Current Medications Medications Dose Sig/Debbie Start Time Status Last (Trade) Ordered Route PRN Stop Time Admin Dose Reason Admin Sodium 1,000 ml @ Q1H ONCE 08/18/18 DC 08/18/18 Chloride 1,000 mls/hr IV 07:00 06:57 08/18/18 07:59 Ketorolac 30 mg ONCE STAT 08/18/18 DC 08/18/18 Tromethamine IV 06:46 06:58 (Toradol) 08/18/18 06:48 Ondansetron 4 mg ONCE STAT 08/18/18 DC 08/18/18 HCl (Zofran IV 06:46 06:58 Inj) 08/18/18 06:48 Famotidine 20 mg ONCE ONCE 08/18/18 DC 08/18/18 (Pepcid Iv) IV 07:30 07:18 08/18/18 07:31 Procedures/MDM ED course includes a thorough examination and history. Medications: IV NS, Toradol, Pepcid, Zofran Imaging: -- Labs: -- Low suspicion for life-threatening medical emergency. Low suspicion for acute abdominal emergency. Low suspicion for infectious process that requires additional antibiotics at this time or incision and drainage or hospitalization. patient presenting with constellation of symptoms likely representing uncomplicated healing abscess and diarrhea secondary to antibiotic use as characterized by history, physical exam findings. No respiratory distress, otherwise relatively well appearing and nontoxic. At time of reassessment, patient is asleep with no visible signs of pain. Patient reporting decreased pain and nausea. No episodes of diarrhea during ER visit. No vomiting during ER visit. Questions answered. Disposition given. Patient agrees to follow-up plan of care. Patient educated on diagnoses, prescriptions, follow-up care, return precautions. Strict return precautions given for worsening condition; questions answered discharge. Disposition for discharge with followup in 2 days with PCP/clinic. Departure Diagnosis: Primary Impression: Abscess re-check Additional Impression: Diarrhea Diarrhea type: unspecified type Qualified Codes: R19.7 - Diarrhea, unspecified Condition: Stable Patient Instructions: Abscess, Antiobiotic Treatment Only Referrals: [facility] YOU HAVE RECEIVED A MEDICAL SCREENING EXAM AND THE RESULTS INDICATE THAT YOU DO NOT HAVE A CONDITION THAT REQUIRES URGENT TREATMENT IN THE EMERGENCY DEPARTMENT. FURTHER EVALUATION AND TREATMENT OF YOUR CONDITION CAN WAIT UNTIL YOU ARE SEEN IN YOUR DOCTORS OFFICE WITHIN THE NEXT 1-2 DAYS. IT IS YOUR RESPONSIBILITY TO MAKE AN APPOINTMENT FOR FOLOW-UP CARE. IF YOU HAVE A PRIMARY DOCTOR --you should call your primary doctor and schedule an appointment IF YOU DO NOT HAVE A PRIMARY DOCTOR YOU CAN CALL OUR PHYSICIAN REFERRAL HOTLINE AT IF YOU CAN NOT AFFORD TO SEE A PHYSICIAN YOU CAN CHOSE FROM THE FOLLOWING [facility] [address] [facility] [address] [facility] [address] [facility] [address] [facility] [address] [facility]. [facility] [address] [facility]. [facility] YOU HAVE RECEIVED A MEDICAL SCREENING EXAM AND THE RESULTS INDICATE THAT YOU DO NOT HAVE A CONDITION THAT REQUIRES URGENT TREATMENT IN THE EMERGENCY DEPARTMENT. FURTHER EVALUATION AND TREATMENT OF YOUR CONDITION CAN WAIT UNTIL YOU ARE SEEN IN YOUR DOCTORS OFFICE WITHIN THE NEXT 1-2 DAYS. IT IS YOUR RESPONSIBILITY TO MAKE AN APPOINTMENT FOR FOLOW-UP CARE. IF YOU HAVE A PRIMARY DOCTOR --you should call your primary doctor and schedule and appointment IF YOU DO NOT HAVE A PRIMARY DOCTOR YOU CAN CALL OUR PHYSICIAN REFERRAL HOTLINE AT . IF YOU CAN NOT AFFORD TO SEE A PHYSICIAN YOU CAN CHOSE FROM THE FOLLOWING [facility] INSTITUTIONS: [facility] [address] [place] [address] [facility] [address] [place] [address] [facility] [address] [place] [address] Additional Instructions: Thank you very much for allowing us to participate in your care. Your health and safety is our top priority at [facility]. It is important to read all discharge instructions and education provided in your discharge packet. *Start a [id number] probiotic. A brand called Align is used frequently for patients who have been on antibiotics with GI symptoms; continue antibiotics as prescribed* *Wound recheck will be needed after antibiotics completed within 1 to 2 days after completion* Call your primary care doctor TOMORROW for an appointment during the next 2-4 days and bring all the information and medications prescribed. Have prescriptions filled and follow precisely the directions on the label. --Acetaminophen as a medication for pain and/or fever. Take this medication as needed for mild to moderate pain. This medication will not cause drowsiness. -Zofran is a medication for nausea/vomitting; take this medication as needed for nausea/vomiting/decreased appetite. --Famotidine is a medication that will help with acid reflux/unsettled stomach; take this medication as prescribed for the next 1 Week with lunch and dinner. If the symptoms get worse and your provider is unavailable, return to the Emergency Department immediately. GALINDO LIGHT NP Aug 18, 2018 08:31
[2018-08-18 08:39] VITALS: BP 103/54; PULSE 66; RESP 18
== END 2018-08-18 08:30 | disposition home or self-care (01) ==
LOC: FTE 06:14
DX: R19.7 Diarrhea, unspecified (principal); Z48.01 Encounter for change or removal of surgical wound dressing
CPT/HCPCS: J1885; J2405; J7030; 96374; 96375